=== PATIENT | female | born 1980 | race Two or more races ===

== ENCOUNTER 2017-01-28 16:35 | Emergency (ER) | payer OTHER ==
[~2017-01-28] VITALS: Ht 172.7 cm; Wt 84.3 kg
[~2017-01-28 16:35] MED LIST: ASPI-515 PO; COLE625T2 PO; CYAN25009 SQ; FLEC100T PO; IBUP200T5 PO; LIOT25TA3 PO; LIOT5TAB3 PO; LIOT5TAB3 SL; METO25TA35 PO; SPIR25TA3 PO; THYR120T PO; THYR60TA PO
[2017-01-28] MEDS ORDERED: SODIUM CHLORIDE 0.9% 1,000 ML IV ONE (17:04)
[2017-01-28 17:11] LABS: ASPARTATE AMINO TRANSFERASE 12 U/L (15-37); BLOOD UREA NITROGEN 13 mg/dL (7-18)
[2017-01-28] MEDS ORDERED: SODIUM CHLORIDE FLUSH 10ML SYR IVF ONE (17:30)
[2017-01-28 20:50] VITALS: BP 124/67
== END 2017-01-28 20:54 | disposition home or self-care (01) ==
LOC: ED 17:14
DX: R10.84 Generalized abdominal pain (principal); I10 Essential (primary) hypertension; E89.0 Postprocedural hypothyroidism; Z90.49 Acquired absence of other specified parts of digestive tract
CPT/HCPCS: 36415; 74177; 80053; 81003; 83690; 84703; 85025; 96360; 96361; 99285; J7030

== ENCOUNTER 2019-08-26 09:48 | Emergency (ER) | payer OTHER, BC ==
[~2019-08-26] VITALS: Ht 172.7 cm; Wt 82.0 kg
[~2019-08-26 09:48] MED LIST changes: +COLE625T12 PO; -COLE625T2 PO; +IBUP-1902 PO; -IBUP200T5 PO; +LIOT25TA12 PO; -LIOT25TA3 PO; +LIOT5TAB11 PO; +LIOT5TAB11 SL; -LIOT5TAB3 PO; -LIOT5TAB3 SL; -SPIR25TA3 PO; +SPIR25TA5 PO
--- NOTE | 2019-08-26 10:33 | NUR ---
MICHELLE CERVANTES AT BEDSIDE FOR EVAL. THIS IS A 39 YO FEMALE WHO PRESENTS TO THE ER C/O EPIGASTRIC PAIN SINCE THURSDAY EVENING C/O SHARP EPIGASTRIC PAIN ALMOST IMMEDIATELY AFTER EATING. PT DENIES N/V AND C/O LOOSE, SOFT STOOL. PT TENDER UPON PALP TO EPIGASTRIC REGION. PT AO X 4. SKIN PWD. RESP EVEN AND UNLABORED. PT ON BP AND O2 MONITORS. CALL LIGHT WITHIN REACH. WILL CONT TO MONITOR PT.
[2019-08-26] MEDS ORDERED: ONDANSETRON 2MG/ML, 2ML ONE (10:58)
[2019-08-26] MEDS ORDERED: MORPHINE SULFATE 4 MG/ML, 1ML ONE (10:58)
[2019-08-26] MEDS ORDERED: MAALOX/HYOSCYAMINE/LIDOCAINE 45 ML BTL ONE (10:58)
[2019-08-26] MEDS ORDERED: MAALOX/HYOSCYAMINE/LIDOCAINE 45 ML BTL PO ONE (11:00)
[2019-08-26] MEDS ORDERED: ONDANSETRON 2MG/ML, 2ML IVPush ONE (11:00)
[2019-08-26] MEDS ORDERED: MORPHINE SULFATE 4 MG/ML, 1ML IVPush PRN (11:00)
[2019-08-26 11:11] LABS: MICROSCOPIC AUTO
[2019-08-26 11:12] LABS: BASOPHILS # (AUTO) 0.11 x10^3/uL (0-0.1); BASOPHILS % (AUTO) 1 % (0-1); EOSINOPHILS % (AUTO) 1 % (1-7); LYMPHOCYTES # (AUTO) 2.05 x10^3/uL (1-3.4); LYMPHOCYTES % (AUTO) 27 % (22-44); MD NO; MEAN CORPUSCULAR HGB CONC 33.1 g/dL (32.4-35.8); MEAN CORPUSCULAR VOLUME 87.8 fL (80-100); MEAN PLATELET VOLUME 8.1 fL (7.4-10.4); MONOCYTES # (AUTO) 0.43 x10^3/uL (0.2-0.8); MONOCYTES % (AUTO) 6 % (2-9); NEUTROPHILS # (AUTO) 4.97 x10^3/uL (1.8-6.8); NEUTROPHILS % (AUTO) 65 % (42-75); PLATELET COUNT 283 x10^3/uL (130-400); RED BLOOD COUNT 5.42 x10^6/uL (3.82-5.3)
--- NOTE | 2019-08-26 11:14 | NUR ---
PT MEDICATED ORDERED WITH GI COCKTAIL AND NAUSEA MEDICATION. PT REFUSED OFFER OF MORPHINE AT THIS TIME. PT AWARE SHE CAN HAVE PAIN MEDICATION AT ANY TIME. PT AO X 4. SKIN PWD. RESP EVEN AND UNLABORED. MOTHER AT BEDSIDE. CALL LIGHT WITHIN REACH. WILL CONT TO MONITOR PT.
[2019-08-26 11:20] LABS: ALANINE AMINOTRANSFERASE 14 U/L (12-78); ALBUMIN 3.6 g/dL (3.4-5.0); ANION GAP 5 mmol/L (5-15); CALCIUM 8.9 mg/dL (8.5-10.1); CHLORIDE 109 mmol/L (98-107); CREATININE 0.86 mg/dL (0.55-1.02)
[2019-08-26 11:22] LABS: ALKALINE PHOSPHATASE 93 U/L (45-117); BILIRUBIN,TOTAL 0.4 mg/dL (0.2-1.0); TOTAL PROTEIN 7.7 g/dL (6.4-8.2)
[2019-08-26 11:26] LABS: CULTURE INDICATED? YES
--- NOTE | 2019-08-26 12:06 | NUR ---
PT TO CT SCAN VIA [facility] AT THIS TIME.
[2019-08-26] MEDS ORDERED: OMNIPAQUE 350 MG/ML, 100ML BOTTLE ONE (12:21)
[2019-08-26] MEDS ORDERED: DICYCLOMINE 10 MG/ML, 2ML IM ONE (13:00)
[2019-08-26] MEDS ORDERED: DICYCLOMINE 10 MG/ML, 2ML ONE (13:17)
--- NOTE | 2019-08-26 13:25 | NUR ---
PT MEDICATED ORDERED FOR PAIN. PT CONT TO REFUSE MORHPINE. PT VERBALIZES UNDERSTANDING OF POC FROM MICHELLE COE. MOTHER AT BEDSIDE. ALL QUESTIONS ANSWERED. CALL LIGHT WITHIN REACH. WILL CONT TO MONITOR PT.
[2019-08-26 13:51] VITALS: BP 107/55
== END 2019-08-26 13:54 | disposition home or self-care (01) ==
LOC: ED 11:46
DX: R10.13 Epigastric pain (principal); R10.33 Periumbilical pain; I10 Essential (primary) hypertension; Z90.49 Acquired absence of other specified parts of digestive tract
CPT/HCPCS: 36415; 74177; 80053; 81001; 83690; 85025; 87086; 96372; 96374; 99284; J0500; J2405; Q9967

== ENCOUNTER → 2019-09-23 | Outpatient (CLI) | payer OTHER, BC | END | disposition home or self-care (01) | LOC: RAD 07:23 | PROVIDERS: ATTEND Nurse Practitioner | DX: R10.13 Epigastric pain (principal); R10.84 Generalized abdominal pain | CPT/HCPCS: 74250 ==

== ENCOUNTER → 2019-12-08 | Outpatient (CLI) | payer OTHER, BC | END | disposition home or self-care (01) | LOC: CFH 13:43 | PROVIDERS: ATTEND Family Medicine | DX: R22.2 Localized swelling, mass and lump, trunk (principal) | CPT/HCPCS: 76705 ==

== ENCOUNTER 2021-01-10 06:52 | Day surgery (SDC) | payer OTHER, BC ==
[~2021-01-10 06:52] MED LIST changes: -ASPI-515 PO; +ASPI-963 PO
[2021-01-10] MEDS ORDERED: LIDOCAINE 2%, 20ML ONE (07:39)
== END 2021-01-10 09:24 | disposition home or self-care (01) ==
LOC: CACL 06:52
PROVIDERS: ATTEND Internal Medicine Cardiovascular Disease
DX: Z45.09 Encounter for adjustment and management of other cardiac device (principal); R00.2 Palpitations; I49.3 Ventricular premature depolarization; F32.9 Major depressive disorder, single episode, unspecified; Z79.890 Hormone replacement therapy; Z79.899 Other long term (current) drug therapy; Z88.8 Allergy status to other drugs, medicaments and biological substances
CPT/HCPCS: 33285; 33286; C1764